=== PATIENT | male | born 1950 | race Caucasian/White ===

== ENCOUNTER → 2017-05-15 | Outpatient (CLI) | payer OTHER | LOC: FIMAGING 11:02 | PROVIDERS: ATTEND Family Medicine | DX: R91.1 Solitary pulmonary nodule (principal); J98.11 Atelectasis ==

== ENCOUNTER 2018-06-14 06:02 | Observation (INO) | payer OTHER ==
[2018-06-14] MEDS ORDERED: ceFAZolin 2 GM/DEXTROSE 100 ML IV ONE (06:12)
[2018-06-14] MEDS ORDERED: LIDOCAINE 1% 2 ML INJ ID PRN (06:12)
[2018-06-14] MEDS ORDERED: LR 1,000 ML IV ONE (06:12)
[2018-06-14] MEDS ORDERED: BUPIVACAINE 0.5% 30 ML SDV ONE (06:57)
[2018-06-14] MEDS ORDERED: MIDAZOLAM 2 MG/2 ML VIAL ONE (07:08)
[2018-06-14] MEDS ORDERED: MIDAZOLAM 2 MG/2 ML VIAL IVP ONE (07:09)
--- NOTE | 2018-06-14 07:10 | PDANEPAE ---
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 - Endocrine History Hx Diabetes: No Hypothyroid: Yes Hyperthyroid: No Obesity: no Endocrine History Comment: hypothyroid - Renal History Hx Renal Disorders: No Renal History Comment: urinary hesitancy - Liver History Hx Hepatic Disorders: No - Neurological & Psychiatric Hx Hx Neurological and Psychiatric Disorders: Yes Neurological / Psychiatric History Comment: ADHD - Cancer History Hx Cancer: Yes 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 mild hearing loss. deviated septum. hx of back spasms - Chronic Pain History Chronic Pain: No - Surgical History Prior Surgeries: colonoscopy ANE Review of Systems Review of Systems: - Exercise capacity METS (RN): 3 METS ANE Patient History - Allergies Allergies/Adverse Reactions: No Known Allergies Allergy (Verified 06/13/18 11:05) - Home Medications Home Medications: Ascorbic Acid [Vitamin C 500 mg (*)] 2,000 mg PO DAILY 06/13/18 [Last Taken 06/21] Dextroamphetamine/Amphetamine [Adderall 5 mg Tablet] 17.5 mg PO BID@06,12 [Last Taken 06/11/18] Herbals/Supplements -Info Only 1 ea PO DAILY 06/13/18 [Last Taken 06/11/18] Thyroid [[place] Thyroid 60 MG (*)] 120 mg PO DAILY06 06/13/18 [Last Taken ] - NPO status NPO Since - Liquids (Date): 06/14/18 NPO Since - Liquids (Time): 04:20 NPO Since - Solids (Date): 06/13/18 NPO Since - Solids (Time): 22:30 - Smoking Hx Smoking Status: Never smoked - Family Anes Hx Family Hx Anesthesia Complications: none ANE Labs/Vital Signs - Vital Signs Blood Pressure: 160/105 Heart Rate: 92 Respiratory Rate: 16 O2 Sat (%): 93 Height: 187.96 cm Weight: 90.718 kg ANE Physical Exam - Airway Neck exam: FROM Mallampati Score: Class 1 Mouth exam: normal dental/mouth exam - Pulmonary Pulmonary: no respiratory distress - Cardiovascular Cardiovascular: regular rate and rhythym - ASA Status ASA Status: II ANE Anesthesia Plan Anesthesia Plan: GA w LMA
[2018-06-14] MEDS ORDERED: PROPOFOL 200 MG/20 ML VIAL ONE ×2 (07:19)
[2018-06-14] MEDS ORDERED: fentaNYL 250 MCG/5 ML INJ ONE (07:19)
[2018-06-14] MEDS ORDERED: DEXAMETHASONE 4 MG/ML VIAL ONE (07:22)
[2018-06-14] MEDS ORDERED: LIDOCAINE 2% 2 ML INJ ONE (07:22)
[2018-06-14] MEDS ORDERED: ONDANSETRON 4 MG/2 ML VIAL ONE (07:22)
--- NOTE | 2018-06-14 07:37 | PDHPUP ---
History & Physical Update H&P update statement: This history and physical update is based on an assessment of the patient which was completed after admission or registration (within 24 hours), but prior to the surgery/procedure. H&P update: H&P reviewed & patient examined, no change in patient's condition since H&P completed
[2018-06-14] MEDS ORDERED: ePHEDrine SULFATE 25 MG/5 ML SYR ONE (07:52)
[2018-06-14] MEDS ORDERED: HYDROCODONE/APAP 5/325 TAB PO PRN (08:37)
[2018-06-14] MEDS ORDERED: ONDANSETRON 4 MG/2 ML VIAL IVP PRN ×2 (08:37→08:48)
[2018-06-14] MEDS ORDERED: LABETALOL HCL 5 MG/ML 20 ML MDV IVP PRN (08:37)
[2018-06-14] MEDS ORDERED: NALOXONE HCL 0.4 MG/ML INJ IVP PRN (08:37)
[2018-06-14] MEDS ORDERED: LR 500 ML IV PRN (08:37)
[2018-06-14] MEDS ORDERED: fentaNYL 100 MCG/2 ML INJ IVP PRN (08:37)
[2018-06-14] MEDS ORDERED: ACETAMINOPHEN 325 MG TAB PO PRN (08:47)
[2018-06-14] MEDS ORDERED: LACTULOSE 20 GM/30 ML UDCUP PO PRN (08:48)
[2018-06-14] MEDS ORDERED: MAGNESIUM HYDROXIDE 30 ML UDCUP PO PRN (08:48)
[2018-06-14] MEDS ORDERED: POLYETHYLENE GLYCOL 3350 17 GM PKT PO PRN (08:48)
[2018-06-14] MEDS ORDERED: oxyCODONE IR 5 MG TAB PO PRN (08:48)
[2018-06-14] MEDS ORDERED: BISACODYL 10 MG SUPP PR PRN (08:48)
[2018-06-14] MEDS ORDERED: ONDANSETRON DISINTEGRATING 4 MG TAB PO PRN (08:48)
--- NOTE | 2018-06-14 08:52 | POSTOPPROG ---
Post Op Note Date of Operation: 06/14/18 Surgeon: Gabi Harden Anesthesiologist: rocky Anesthesia: GET(General Endotracheal) Pre-op Diagnosis: extramammary pagets disease Post-op Diagnosis: same Indication: 67 yo with extramammary pagets disease Procedure: wide local excision r groin 11x9x0.5 cm Findings: atypia at margins Inf/Abcess present in the surg proc area at time of surgery?: No Depth: Superfical (Skin SQ) EBL: Minimal Specimen(s): wle + margins
--- NOTE | 2018-06-14 09:13 | POSTANESTH ---
Post Anesthetic Evaluation Cardiovascular Status: Normal, Stable Respiratory Status: Normal, Stable Level of Consciousness/Mental Status: Can Participate in Eval Pain Control: Adequate, Prn Tx Ordered Nausea/Vomiting Control: Adequate, Prn Tx Ordered Complications Possibly Related to Anesthesia: None Noted
--- NOTE | 2018-06-14 09:17 | GOP ---
DATE OF OPERATION: 06/14/2018 SURGEON: Gabi Harden MD ANESTHESIA: General. ANESTHESIOLOGIST: Dr. Leonarod Salinas. PREOPERATIVE DIAGNOSIS: Extramammary Paget's, right groin. POSTOPERATIVE DIAGNOSIS: Extramammary Paget's, right groin. PROCEDURE PERFORMED: Wide local excision, right groin, 11 x 9 x 0.5 cm, including scrotal tissue. FINDINGS: Atypical cells scattered on the frozen section, but no overt Paget's. SPECIMENS: Wide local excision 2 cm margins marked plus frozen section on true medial and true infer ior margin. ESTIMATED BLOOD LOSS: Less than 10 cc. INDICATIONS: The patient is a 67-year-old, who has had a right groin lesion treated with multiple to picals for quite some time. I performed a biopsy and found extramammary Paget's. DESCRIPTION OF PROCEDURE: Patient was brought into the operating room, placed supine on the table, a nd general anesthesia was administered. His groin, penis, and scrotum were prepped and draped in the usual sterile fashion. I infiltrated the area with 30 cc of 0.5% Marcaine. I marked out where the obvious lesion was and then marked 2 cm beyond this in every direction. I was unable to go further a s it was extending very posterior, closer to his anus as well to the edge of his penis, and I took ab out a third of his scrotal skin. Hemostasis was achieved. I could see where the cord and cord struc tures were descending to the testicle, which was now exposed. I then tucked the testicle into the sc rotum and using a running suture, sutured the scrotum down to the wound edge. This now made the inci edwina closer to 11 x 6 cm. I placed a wound VAC. He was awakened in the operating room, extubated, a nd transferred to PACU in stable condition. /[id number]/MODL
[2018-06-14] MEDS: IBUPROFEN 600 MG TAB PO SCH ×3 (12:14→21:30)
[2018-06-14] MEDS: SENNOSIDES/DOCUSATE SODIUM TAB PO SCH ×2 (15:49→21:31)
--- NOTE | 2018-06-14 16:29 | ASMTCMCOM ---
ASHLEY Note CM Note Notes: Spoke w/, pt will need a wound vac for home. ASHLEY filled out paperwork and it was signed by . Wound vac approved by [facility], ASHLEY will deliver tomorrow. DC Plan: Home w/ Wound vac Date Signed: 06/14/2018 04:28 PM Electronically Signed By:Lisy Caceres RN
[2018-06-15] MEDS: IBUPROFEN 600 MG TAB PO SCH ×2 (06:01→12:05)
[2018-06-15] MEDS: SENNOSIDES/DOCUSATE SODIUM TAB PO SCH (10:48)
[2018-06-15 12:14] VITALS: BP 145/76
--- NOTE | 2018-06-15 13:42 | SOAPPROG ---
SOAP Progress Note Assessment/Plan: Assessment/Plan: 67yo M POD#1 s/p excision of R groin extramammary paget's. Pain controlled with ibuprofen Wound vac intact - change twice weekly Reg diet Ambulating independently Dispo: quite anxious to go home. wants to go home today. does not want home care. seen with Dr. Harden. S: feeling well. has no had a bm, but this is normal for him. has no needed rx pain meds O: lying in bed, comfortable, NAD No increased WOB No peripheral edema ecchymosis R scrotum vac intact no erythema nontender Objective: Vital Signs Temp Pulse Resp BP Pulse Ox 36.7 C 81 16 145/76 H 91 L 06/15/18 12:00 06/15/18 12:00 06/15/18 12:00 06/15/18 12:00 06/15/18 12:00 06/14/18 06/15/18 06/16/18 05:59 05:59 05:59 Intake Total 1100 Output Total 105 Balance 995 ICD10 Worksheet Patient Problems: Problems Problem Status Onset Extramammary Paget disease Acute - ICD10 Problem Qualifiers (1) Extramammary Paget disease
--- NOTE | 2018-06-15 14:34 | ASMTLACE ---
LACE Length of stay for Answers: Less than 1 day current admission Acuity / Level of Answers: No Care: Did the patient have an inpatient admission? Comorbidities - select Answers: Other Notes: HTN, Hyperlipidemia, all that apply # of Emergency department Answers: 0 visits in the last 6 months Score: 1 Date Signed: 06/15/2018 02:33 PM Electronically Signed By:Nikia Avelar RN
--- NOTE | 2018-06-15 14:36 | ASMTDCNOTE ---
Case Management Discharge Discharge Order Complete? Answers: Yes Patient to Obtain Answers: Independently Medications Discharge Comments Notes: 06/15/2018 Case Management Note Wound Vac approved by [facility], delivered to pt room. Pt signed paperwork accepting wound vac. Pt refusing funeral home director, not home bound. Pt to have dressing changes done at Dr. Harden's office during clinic hours. No further case mangement d/c needs identified. Case Management d/c poc: independent with wound vac and dressing changes with Dr. Harden. Date Signed: 06/15/2018 02:36 PM Electronically Signed By:Nikia Avelar RN
--- NOTE | 2018-06-15 14:37 | ASDISCHSUM ---
Discharge Information Plan Status:Home with No Needs Medically Cleared to Leave:06/15/2018 Discharge Date:06/15/2018 CM D/C Disposition:Home, Routine, Self-Care ADT D/C Disposition:Home, Routine, Self-Care Projected Discharge Date:06/15/2018 Transportation at D/C: Discharge Delay Reason: Follow-Up Date:06/15/2018 Discharge Slot: Final Diagnosis: Placement Information Patient Contact Information Contact Name:CORNELL Relationship: Address:[address] Work Phone: City:[place] Alternate Phone: State/Zip Code:[place] [address] Email: Financial Information Financial Class:Medicare Primary Plan Desc:MEDICARE OUTPATIENT Primary Plan Number:[id number] Secondary Plan Desc:VonjourO SEGUN Secondary Plan Number:[id number] Assessment Information LACE LACE Length of stay for Answers: Less than 1 day current admission Acuity / Level of Answers: No Care: Did the patient have an inpatient admission? Comorbidities - select Answers: Other Notes: HTN, Hyperlipidemia, all that apply # of Emergency department Answers: 0 visits in the last 6 months Score: 1 Date Signed: 06/15/2018 02:33 PM Electronically Signed By:Nikia Avelar RN [facility] CM Progress Note CM Note CM Note Notes: Spoke w/, pt will need a wound vac for home. ASHLEY filled out paperwork and it was signed by . Wound vac approved by [facility], CM will deliver tomorrow. DC Plan: Home w/ Wound vac Date Signed: 06/14/2018 04:28 PM Electronically Signed By:Lisy Caceres RN Case Management Discharge Plan Note Case Management Discharge Discharge Order Complete? Answers: Yes Patient to Obtain Answers: Independently Medications Discharge Comments Notes: 06/15/2018 Case Management Note Wound Vac approved by [facility], delivered to pt room. Pt signed paperwork accepting wound vac. Pt refusing psychometric examiner, not home bound. Pt to have dressing changes done at Dr. Harden's office during clinic hours. No further case mangement d/c needs identified. Case Management d/c poc: independent with wound vac and dressing changes with Dr. Harden. Date Signed: 06/15/2018 02:36 PM Electronically Signed By:Nikia Avelar RN Intervention Information Intervention Type:RUSSELL-Not Delivered Date of Service:06/15/2018 11:54 AM Patient Type:Observation Staff Member:Nusrat Valenzuela Hours: Discipline: Severity: Comment:Patient wanted to take the time to stormy d the RUSSLEL. Patient also wanted to ask Aide mendoza and Pipe Organ Mechanic on floor about RUSSELL before signing it. Patient received MO ON but did not feel comfortable signing i t at that time. Intervention Type:*RUSSELL-Signed Date of Service:06/15/2018 02:18 PM Patient Type:Observation Staff Member:Nusrat Valenzuela Hours: Discipline: Severity: Comment:
--- NOTE | 2018-06-16 05:43 | GDS ---
ADMITTING DIAGNOSIS: Extramammary Paget's of right groin. SECONDARY DIAGNOSES: Attention deficit hyperactivity disorder, hyperlipidemia, hypertension, hypothy roidism, pulmonary nodule. REASON FOR ADMISSION: The patient is a 67-year-old man with a lesion of his right groin, biopsy-prov en, extramammary Paget's. He presents at this time for surgical intervention, pain control, and obse rvation. HOSPITAL COURSE: He was taken to the operating room by Dr. Gabi Harden on 06/14/2018 for wide local excision of the right groin. At the time of surgery, the wound measured 11 x 9 x 0.5 cm. He had a w ound VAC placed on postoperative day #1. His pain was controlled without narcotic pain medication. He was ambulating independently, tolerating a regular diet, and was ready for discharge home. DISCHARGE CONDITION: He is being discharged home in stable condition. Pain controlled with oral noé n medication, tolerating regular diet, ambulating independently. DISCHARGE MEDICATIONS: He was sent home with a prescription for oxycodone, quantity 15, Tylenol and ibuprofen and instructed to resume home medications. Please see EMR for further detail. DISCHARGE INSTRUCTIONS AND FOLLOWUP: He will follow up twice weekly for wound VAC changes at the [facility] and in Dr. Harden's office. He will not get the dressing wet. No exercise restrict ions. He understands that the VAC should not be off suction for more than 2 hours. He will call wit h any worsening symptoms, questions, or concerns. /[id number]/MODL
== END 2018-06-15 15:38 | disposition home or self-care (01) ==
LOC: F3E 06:02
PROVIDERS: ADMIT Surgery; ATTEND Surgery
PROC: 0HBAXZZ Excision of Inguinal Skin, External Approach (ICD-10-PCS; principal; 2018-06-14 07:42)
PROC: 0VB5XZZ Excision of Scrotum, External Approach (ICD-10-PCS; principal; 2018-06-14 07:42)
DX: D04.5 Carcinoma in situ of skin of trunk (principal)
CPT/HCPCS: 11626; J0690; J1100; J2250; J2405; J2704; J3010

== ENCOUNTER 2018-07-20 09:41 | Day surgery (SDC) | payer OTHER ==
[~2018-07-20 09:41] MED LIST: LR 1,000 ML IV ONE; ceFAZolin 2 GM/DEXTROSE 100 ML IV ONE
[2018-07-20] MEDS ORDERED: THROMBIN (BOVINE) 5,000 UNIT VIAL TP ONE (13:21)
[2018-07-20] MEDS ORDERED: MINERAL OIL 10 ML VIAL ONE ×2 (13:21→13:22)
[2018-07-20] MEDS ORDERED: EPINEPHrine 1 MG/ML INJ ONE (13:22)
[2018-07-20] MEDS ORDERED: MIDAZOLAM 2 MG/2 ML VIAL IVP ONE (13:23)
[2018-07-20] MEDS ORDERED: MIDAZOLAM 2 MG/2 ML VIAL ONE (13:23)
--- NOTE | 2018-07-20 13:27 | PDANEPAE ---
ANE History of Present Illness R neck lesion and R groin 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 - Endocrine History Hx Diabetes: No Hypothyroid: No Hyperthyroid: No Endocrine History Comment: hypothyroid - Renal History Hx Renal Disorders: Yes Renal History Comment: urinary hesitancy - Liver History Hx Hepatic Disorders: No - Neurological & Psychiatric Hx Hx Neurological and Psychiatric Disorders: Yes Neurological / Psychiatric History Comment: ADHD - Cancer History Hx Cancer: Yes 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 mild hearing loss. deviated septum. hx of back spasms - Chronic Pain History Chronic Pain: No - Surgical History Prior Surgeries: WIDE EXC RT GROIN WITH PLACEMENT OF WOUND VAC 06/14/18. colonoscopy ANE Review of Systems Review of Systems: - Exercise capacity METS (RN): 4 METS ANE Patient History - Allergies Allergies/Adverse Reactions: No Known Allergies Allergy (Verified 06/13/18 11:05) - Home Medications Home Medications: Ascorbic Acid [Vitamin C 500 mg (*)] 2,000 mg PO DAILY 06/13/18 [Last Taken ] Dextroamphetamine/Amphetamine [Adderall 5 mg Tablet] 17.5 mg PO BID@06,12 [Last Taken 1 Week Ago ~07/13/18] Herbals/Supplements -Info Only 1 ea PO DAILY 06/13/18 [Last Taken 1 Week Ago ~] Thyroid [[place] Thyroid 60 MG (*)] 120 mg PO DAILY06 06/13/18 [Last Taken 07:30] Ibuprofen [Motrin (*)] 200 mg PO DAILY PRN 07/20/18 [Last Taken 07/19/18] oxyCODONE IR [Oxycodone Ir (*)] 5 mg PO Q4-6PRN PRN 07/20/18 [Last Taken ] - NPO status NPO Status: no food or drink >8 hours NPO Since - Liquids (Date): 07/20/18 NPO Since - Liquids (Time): 07:30 NPO Since - Solids (Date): 07/19/18 NPO Since - Solids (Time): 22:00 - Anes Hx Anes Hx: no prior problems - Smoking Hx Smoking Status: Never smoked - Alcohol Use Alcohol Use: Rarely - Family Anes Hx Family Anes Hx: none Family Hx Anesthesia Complications: none ANE Labs/Vital Signs - Vital Signs Blood Pressure: 158/91 Heart Rate: 86 Respiratory Rate: 18 O2 Sat (%): 93 Height: 187.96 cm Weight: 88.451 kg ANE Physical Exam - Airway Neck exam: FROM Mallampati Score: Class 1 Mouth exam: normal dental/mouth exam - Pulmonary Pulmonary: no respiratory distress, no rales or rhonchi - Cardiovascular Cardiovascular: regular rate and rhythym, no murmur, rub, or gallop - ASA Status ASA Status: II ANE Anesthesia Plan Anesthesia Plan: GA w LMA
[2018-07-20] MEDS ORDERED: fentaNYL 100 MCG/2 ML INJ ONE ×2 (13:38→13:54)
[2018-07-20] MEDS ORDERED: PROPOFOL/EMULSION 500 MG/50 ML BOTTLE IV ONE (13:38)
[2018-07-20] MEDS ORDERED: BUPIVACAINE 0.5% 30 ML SDV ONE (13:55)
[2018-07-20] MEDS ORDERED: ONDANSETRON 4 MG/2 ML VIAL IVP PRN (14:02)
[2018-07-20] MEDS ORDERED: fentaNYL 100 MCG/2 ML INJ IVP PRN (14:02)
[2018-07-20] MEDS ORDERED: HYDROCODONE/APAP 5/325 TAB PO PRN (14:02)
[2018-07-20] MEDS ORDERED: NALOXONE HCL 0.4 MG/ML INJ IVP PRN (14:02)
[2018-07-20] MEDS ORDERED: oxyCODONE IR 5 MG TAB PO PRN (14:02)
[2018-07-20] MEDS ORDERED: ACETAMINOPHEN 500 MG TAB PO PRN (14:02)
[2018-07-20] MEDS ORDERED: ONDANSETRON 4 MG/2 ML VIAL ONE (14:06)
--- NOTE | 2018-07-20 14:13 | POSTOPPROG ---
Post Op Note Date of Operation: 07/20/18 Surgeon: Gabi Harden Anesthesiologist: aashish Anesthesia: GET(General Endotracheal) Pre-op Diagnosis: skin lesion and extramammary pagets Post-op Diagnosis: same Indication: 67 yo with skin lesion changing and extramammary pagets with close margin Procedure: excise skin lesion 2 cm and inferior margin R groin Findings: no unusual Inf/Abcess present in the surg proc area at time of surgery?: No Specimen(s): skinlesion and inferior margin
[2018-07-20 15:23] VITALS: BP 113/66
--- NOTE | 2018-07-22 05:28 | GOP ---
DATE OF OPERATION: 07/20/2018 SURGEON: Gabi Harden MD ANESTHESIA: General. ANESTHESIOLOGIST: Marian Avelar MD. PREOPERATIVE DIAGNOSIS: Skin lesion, right neck and extramammary Paget's disease, right groin. POSTOPERATIVE DIAGNOSIS: Skin lesion, right neck and extramammary Paget's disease, right groin. PROCEDURE PERFORMED: Excised skin lesion 2 cm and inferior margin right groin. FINDINGS: No unusual findings. INDICATIONS: The patient is a 67-year-old man with extramammary Paget's taken to the operating room and excised the skin and subcutaneous tissues from his groin and scrotum. On his pathology report, h e did have an inferior margin concerning for additional extramammary Paget's cells. He was initially returning to the operating room for split-thickness skin graft, but has been healing so well that we have decided to postpone skin grafting. He also had a skin lesion on his right neck. DESCRIPTION OF PROCEDURE: Patient was brought into the operating room, placed supine on the table. General anesthesia was administered. His neck and groin were prepped and draped in the usual sterile fashion. I infiltrated both areas with 0.5% Marcaine. I made an ellipse around the skin lesion on his right neck approximately 2 cm. This was submitted to Pathology. Hemostasis achieved. The wound was closed with 3-0 Prolene. On his right groin, the wound has contracted so well that I excised th e inferior margin. Hemostasis achieved. Hydrofera Blue, ABD, and mesh pants were applied. He was a wakened in the operating room, extubated, and transferred to PACU in stable condition. /[id number]/MODL
== END 2018-07-20 15:50 | disposition home or self-care (01) ==
LOC: FSGY 09:41 → UNDOADMOB 09:41 → F3E 09:41 → EDSTATUS 10:45 → UNDODISOB 15:50 → FSGY 15:50
PROVIDERS: ATTEND Surgery
PROC: 0HB4XZZ Excision of Neck Skin, External Approach (ICD-10-PCS; 2018-07-20)
PROC: 0HBAXZZ Excision of Inguinal Skin, External Approach (ICD-10-PCS; principal; 2018-07-20 10:45)
DX: C44.599 Other specified malignant neoplasm of skin of other part of trunk (principal); L28.0 Lichen simplex chronicus; I10 Essential (primary) hypertension; G47.30 Sleep apnea, unspecified; F90.9 Attention-deficit hyperactivity disorder, unspecified type; Z79.899 Other long term (current) drug therapy
CPT/HCPCS: J0171; J0690; J2250; J2405; J2704; J3010